=== PATIENT | male | born 1975 | race Caucasian/White ===

== ENCOUNTER 2023-10-27 16:20 | Inpatient (IN) | payer BC ==
[~2023-10-27] VITALS: Ht 172.7 cm; Wt 63.1 kg
[~2023-10-27 16:20] MED LIST: NO HOME MEDICATIONS
[2023-10-27 17:12] LABS: BASO # 0.1 K/mm3 (0.0-0.2); BASO % 1.2 % (0.0-2.0); EOS % 0.1 % (0.0-4.0); GRAN # 7.8 K/mm3 (1.4-6.5); GRAN % 82.5 % (42.2-75.2); HEMATOCRIT 45.4 % (42.0-52.0); HEMOGLOBIN 15.6 g/dl (13.5-18.0); LYMPH # 0.6 K/mm3 (1.2-3.4); LYMPH % 6.5 % (20.0-51.0); MEAN CELL VOLUME 103 fl (80.0-100.0); MEAN CORPUSCULAR HEMOGLOBIN 35 pg (27-31); MEAN CORPUSCULAR HGB CONC 34 g/dl (33.0-37.0); MEAN PLATELET VOLUME 10.1 fl (7.4-10.4); MONO # 0.9 K/mm3 (0.1-0.6); PLATELET COUNT 294 K/mm3 (130-400); RED BLOOD COUNT 4.42 M/mm3 (4.20-5.60)
[2023-10-27] MEDS ORDERED: NS 1,000 ML IV ONE ×2 (17:15→18:45)
[2023-10-27] MEDS ORDERED: LORazepam 2 MG/ML 1 ML VIAL IV ONE ×2 (17:15→18:45)
[2023-10-27] MEDS ORDERED: Pantoprazole 40 MG in NS 10 ML IV ONE (17:15)
[2023-10-27 17:31] LABS: ALANINE AMINOTRANSFERASE 89 U/L (0-55); ALBUMIN 4.5 g/dL (3.5-5.0); ALKALINE PHOSPHATASE 195 U/L (40-150); ANION GAP 20 mmol/L (7-16); AST,SGOT 193 U/L (5-34); BILIRUBIN,TOTAL 2.3 mg/dL (0.2-1.2); BLOOD UREA NITROGEN 6 mg/dL (9-21); CALCIUM 9.9 mg/dL (8.4-10.2); CHLORIDE 100 mEq/L (98-107); CREATININE, serum 0.79 mg/dL (0.72-1.25); GLUCOSE 148 mg/dL (70-99); POTASSIUM 3.9 mEq/L (3.5-4.5); SODIUM 142 mEq/L (136-145); TOTAL PROTEIN 7.4 g/dl (6.2-8.1)
[2023-10-27 17:32] LABS: ALCOHOL(ethanol),MEDICAL < 10 mg/dL (0-10)
[2023-10-27] MEDS ORDERED: NS 1,000 ML IV SCH (20:00)
[2023-10-27] MEDS ORDERED: LORazepam 2 MG/ML 1 ML VIAL IM PRN (20:00)
[2023-10-27] MEDS ORDERED: Folic Acid 1 MG,Thiamine 200 MG in NS 1,000 ML IV ONE (20:00)
[2023-10-27] MEDS ORDERED: LORazepam 1 MG TAB PO PRN (20:00)
[2023-10-27] MEDS ORDERED: Mag/Al Hydrox/Simeth Susp 30 ML CUP PO PRN (20:00)
[2023-10-27] MEDS ORDERED: LORazepam 2 MG/ML 1 ML VIAL IV PRN (20:00)
[2023-10-27] MEDS ORDERED: Ondansetron 4 MG/2 ML VIAL IV PRN (20:00)
[2023-10-27] MEDS ORDERED: hydrALAZINE 20 MG/ML 1 ML VIAL IV PRN (20:15)
[2023-10-27] MEDS ORDERED: PRINIVIL10 MG PO (20:32)
[2023-10-27 20:49] LABS: INR 1.2 (0.8-3.0); PROTHROMBIN TIME 12.6 SECONDS (9.7-12.8)
[2023-10-27 20:51] LABS: PARTIAL THROMBOPLASTIN TIME 32.4 SECONDS (26.0-37.0)
[2023-10-27 21:19] LABS: PH 8.5 (5.0-8.5); URINE APPEARANCE CLEAR (CLEAR/HAZY); URINE BLOOD TRACE (NEGATIVE); URINE COLOR YELLOW (YELLOW); URINE GLUCOSE NEGATIVE (NEGATIVE); URINE KETONE NEGATIVE (NEGATIVE); URINE NITRATE NEGATIVE (NEGATIVE); URINE PROTEIN(semi-quant) TRACE (NEGATIVE)
[2023-10-27] MEDS ORDERED: PROAIR HFA0.09 MG/AC IH (21:33)
[2023-10-27] MEDS ORDERED: Albuterol 0.083% Neb Soln 2.5 MG/3 ML UD IH PRN (21:45)
[2023-10-27 22:12] LABS: TRICYCLIC ANTIDEPRESS URINE NEGATIVE (NEGATIVE)
[2023-10-27 22:13] LABS: COLLECTION METHOD CLEAN CATCH
[2023-10-27 23:05] VITALS: BP 154/104; PULSE 80; TEMP 98.7
[2023-10-28] VITALS (20 sets, daily range): BP systolic 106–158; BP diastolic 54–90; PULSE 18–81; TEMP 97.7–98.8
[2023-10-28 06:51] LABS: BASO # 0.1 K/mm3 (0.0-0.2); BASO % 1.1 % (0.0-2.0); EOS % 0.7 % (0.0-4.0); GRAN # 3.7 K/mm3 (1.4-6.5); GRAN % 66.8 % (42.2-75.2); HEMATOCRIT 40.7 % (42.0-52.0); LYMPH # 1.1 K/mm3 (1.2-3.4); LYMPH % 19.6 % (20.0-51.0); MEAN CELL VOLUME 104 fl (80.0-100.0); MEAN CORPUSCULAR HEMOGLOBIN 35 pg (27-31); MEAN CORPUSCULAR HGB CONC 33 g/dl (33.0-37.0); MEAN PLATELET VOLUME 10.4 fl (7.4-10.4); MONO # 0.6 K/mm3 (0.1-0.6); MONO % 11.4 % (1.7-9.3); PLATELET COUNT 206 K/mm3 (130-400); REDCELL DISTRIBUTION WIDTH-CV 13.2 % (11.5-14.5)
[2023-10-28 06:56] LABS: HEMOGLOBIN 13.6 g/dl (13.5-18.0)
[2023-10-28] MEDS ORDERED: Pantoprazole 40 MG in NS 10 ML IV SCH (07:00)
[2023-10-28 07:19] LABS: ALBUMIN 3.4 g/dL (3.5-5.0); CREATININE, serum 0.67 mg/dL (0.72-1.25); POTASSIUM 3.3 mEq/L (3.5-4.5); TOTAL PROTEIN 5.8 g/dl (6.2-8.1)
[2023-10-28] MEDS ORDERED: Multivitamin TAB PO SCH (08:00)
[2023-10-28] MEDS ORDERED: Thiamine 100 MG TAB PO SCH (09:00)
[2023-10-28] MEDS ORDERED: Lisinopril 10 MG TAB PO SCH (09:00)
[2023-10-28] MEDS ORDERED: Folic Acid 1 MG TAB PO SCH (09:00)
[2023-10-28] MEDS ORDERED: *Potassium Replacement Protocol MC SCH (09:45)
--- NOTE | 2023-10-28 13:08 | NUR ---
Back Shoe Worker met with patient to discuss discharge planning. Patient lives in [place] with his , Bertha (ph#[phone]) and sees Dr. Joe for primary care. Patient gets his medications from [facility] with no reported difficulties. Patient is insured with [employer], which is through his 's employer, [employer]. Patient is indepenent with [employer] and employed with [employer]. Patient does not have a DPOA-HC and requested a form to review with is . SW provided this to patient and provided education on how to complete it if desired. SW addressed patient's alcohol use and patient reported his drinking has increased lately due to stress in his life including the of a close friend. Patient denied any history of inpatient or outpatient alcohol treatment stating he's never needed it. SW provided resource list and reviewed options. Patient will discuss this with his and let SW know if he needs any assistance or guidance. Discharge Plan: Home
[2023-10-28] MEDS ORDERED: EMERGEN-C IMM1000 MG PO (13:15)
--- NOTE | 2023-10-28 13:20 | NUR ---
Data: Patient accepted spiritual care offered during Bird [employer]itter rounds. Patient was waiting for his to arrive for a visit. Patient hopes to get his IV taken out soon. Assessment: Patient is bored; restless. Plan of Care: Bird Sitter provided supportive listening and prayer. Patient thanked Bird Sitter for the prayer. Chaplains will remain available as needed/requested while Patient is admitted to this hospital.
--- NOTE | 2023-10-28 20:00 | NUR ---
UPON SHIFT ASSESSMENT, ADRIANNA WAS AXO X4 AND AWAKE IN BED EATING DINNER. SLIGHT TREMORS COULD BE NOTED IN HANDS. CURRENT CIWA SCORE IS 2. PATIENT AFFECT IS PLEASANT. PATIENT STATES NO NEEDS AT THIS TIME. CALL LIGHT WITHIN REACH.
[2023-10-29] VITALS (9 sets, daily range): BP systolic 136–167; BP diastolic 83–97; PULSE 49–66; TEMP 97.8–98.8
[2023-10-29 06:29] LABS: BASO # 0.1 K/mm3 (0.0-0.2); BASO % 0.9 % (0.0-2.0); EOS # 0.1 K/mm3 (0.0-0.7); EOS % 1.4 % (0.0-4.0); GRAN % 71.3 % (42.2-75.2); HEMATOCRIT 38.9 % (42.0-52.0); HEMOGLOBIN 13.1 g/dl (13.5-18.0); LYMPH # 0.8 K/mm3 (1.2-3.4); LYMPH % 14.9 % (20.0-51.0); MEAN CELL VOLUME 106 fl (80.0-100.0); MEAN CORPUSCULAR HEMOGLOBIN 36 pg (27-31); MEAN CORPUSCULAR HGB CONC 34 g/dl (33.0-37.0); MONO # 0.6 K/mm3 (0.1-0.6); PLATELET COUNT 178 K/mm3 (130-400); RED BLOOD COUNT 3.67 M/mm3 (4.20-5.60); REDCELL DISTRIBUTION WIDTH-CV 12.7 % (11.5-14.5)
[2023-10-29 06:50] LABS: ALBUMIN 3.3 g/dL (3.5-5.0); BILIRUBIN,TOTAL 2.8 mg/dL (0.2-1.2); CALCIUM 8.8 mg/dL (8.4-10.2); CREATININE, serum 0.68 mg/dL (0.72-1.25); POTASSIUM 3.6 mEq/L (3.5-4.5); TOTAL PROTEIN 5.6 g/dl (6.2-8.1)
[2023-10-29] MEDS ORDERED: Potassium Bicarbonate/Citrate 20 MEQ Effervescent TAB PO SCH (07:00)
[2023-10-29] MEDS ORDERED: *Potassium Replacement Protocol MC SCH (07:00)
[2023-10-29] MEDS ORDERED: PROTONIX 40MG T40 MG PO (08:51)
[2023-10-29] MEDS ORDERED: PRINIVIL10 MG PO (08:51)
[2023-10-29] MEDS ORDERED: NATURE'S BLEND100 M2 PO (08:52)
[2023-10-29] MEDS ORDERED: FOLIC ACID 11 MG/TA1 PO (08:52)
[2023-10-29] MEDS ORDERED: DUO-KAPS1 CAP PO (08:53)
== END 2023-10-29 11:40 | disposition home or self-care (01) | DRG 897 ==
LOC: COL.ER 16:20 → ICU 20:05 → MEDICAL 22:31
PROVIDERS: Nurse Practitioner Family; Physician Assistant; ADMIT Internal Medicine
DX: F10.239 Alcohol dependence with withdrawal, unspecified (principal); Q60.0 Renal agenesis, unilateral; R74.01 Elevation of levels of liver transaminase levels; E87.6 Hypokalemia; I45.81 Long QT syndrome; I10 Essential (primary) hypertension; J45.909 Unspecified asthma, uncomplicated; Y90.0 Blood alcohol level of less than 20 mg/100 ml; Z87.891 Personal history of nicotine dependence
CPT/HCPCS: J1650; J2060; J2470; J3411; J7030